=== PATIENT | female | born 1995 | race African-American/Black ===

== ENCOUNTER 2016-06-29 23:20 | Emergency (ER) | payer SELFPAY ==
--- NOTE | 2016-06-30 02:08 | ER Document Report ---
ED GI/ - General Chief Complaint: Vaginal Bleeding Stated Complaint: VAGINAL BLEEDING Time seen by provider: 02:00 Notes: Patient is a 21-year-old female that comes emergency department for chief complaint of 5 days of heavy vaginal bleeding, states that she was placed on control for this but has run out, states she was diagnosed with dysfunctional uterine bleeding, states she is not currently sexually active. She states that she will get a cramp, feel radiation to her flank, and then pass a blood clot. She states when she was on control (prescribed by [facility]) she had no symptoms, states she is struggling with the ID issues currently. TRAVEL OUTSIDE OF THE [place] IN LAST 30 DAYS: No Past Medical History - General Information source: Patient - Social History Smoking Status: Never Smoker Frequency of alcohol use: None Drug Abuse: None Lives with: Family Family History: Reviewed & Not Pertinent - Medical History Medical History: Negative Renal/ Medical History: Denies: Hx Peritoneal Dialysis Surgical Hx: Negative - Immunizations Immunizations up to date: Yes Hx Diphtheria, Pertussis, Tetanus Vaccination: Yes Review of Systems - Review of Systems Constitutional: No symptoms reported EENT: No symptoms reported Cardiovascular: No symptoms reported Respiratory: No symptoms reported Gastrointestinal: See HPI Genitourinary: No symptoms reported Female Genitourinary: See HPI Musculoskeletal: No symptoms reported Skin: No symptoms reported Hematologic/Lymphatic: No symptoms reported Neurological/Psychological: No symptoms reported Physical Exam - Vital signs Vitals: Temp Pulse Resp BP Pulse Ox 98.2 F 93 18 131/81 H 98 06/30/16 00:12 06/30/16 00:12 06/30/16 00:12 06/30/16 00:12 06/30/16 00:12 Interpretation: Normal - General General appearance: Appears well, Alert In distress: None - HEENT Head: Normocephalic, Atraumatic Eyes: Normal Pupils: PERRL - Respiratory Respiratory status: No respiratory distress Chest status: Nontender Breath sounds: Normal Chest palpation: Normal - Cardiovascular Rhythm: Regular Heart sounds: Normal auscultation Murmur: No - Abdominal Inspection: Normal Distension: No distension Bowel sounds: Normal Tenderness: Tender - Very mild generalized lower abdominal tenderness with no guarding or rebound. No: Guarding - Back Back: Normal, Nontender. No: Tender - Extremities General upper extremity: Normal inspection, Nontender, Normal color, Normal ROM , Normal temperature General lower extremity: Normal inspection, Nontender, Normal color, Normal ROM , Normal temperature, Normal weight bearing. No: Samantha's sign - Neurological Neuro grossly intact: Yes Cognition: Normal Orientation: AAOx4 [place] Coma Scale Eye Opening: Spontaneous [place] Coma Scale Verbal: Oriented [place] Coma Scale Motor: Obeys Commands [place] Coma Scale Total: 15 Speech: Normal Motor strength normal: LUE, RUE, LLE, RLE Sensory: Normal - Psychological Associated symptoms: Normal affect, Normal mood - Skin Skin Temperature: Warm Skin Moisture: Dry Skin Color: Normal Course - Re-evaluation Re-evalutation: Hemoglobin is low in the mid eights, microcytic anemia, likely blood loss related. Patient is not hypotensive, tachycardic, she denies any dizziness or lightheadedness, she is well-appearing. Very mild generalized tenderness on abdominal exam. No leukocytosis, no fever, urinalysis unremarkable, ultrasound is unremarkable. Patient will be started on Sprintec contraceptive, encouraged to restart her iron and follow-[place] closely [place] [employer] [place] Discussed return precautions. Patient states understanding and agreement. - Vital Signs Vital signs: Temp Pulse Resp BP Pulse Ox 98.2 F 84 16 132/79 H 100 06/30/16 00:12 06/30/16 05:15 06/30/16 05:15 06/30/16 05:15 06/30/16 05:15 - Laboratory Result Diagrams: 06/30/16 02:18 Laboratory results interpreted by me: 06/30/16 06/30/16 02:00 02:18 Hgb 8.6 L Hct 28.4 L MCV 71 L MCH 21.4 L MCHC 30.3 L RDW 15.9 H Plt Count 520 H Eosinophils % 10.1 H Absolute Eosinophils 0.7 H Urine Blood SMALL H Discharge - Discharge Clinical Impression: Dysfunctional uterine bleeding Iron deficiency anemia Qualifiers: Iron deficiency anemia type: chronic blood loss Qualified Code(s): D50.0 - Iron deficiency anemia secondary to blood loss (chronic) Condition: Stable Disposition: HOME, SELF-CARE Additional Instructions: Your ultrasound does not show any acute abnormality. You are becoming more anemic, please take your iron and take the prescribed contraceptive as directed. Please follow-up closely with [employer] for additional management. Return to emergency department for any concerning worsening symptoms including dizziness, passing out, severe bleeding, severe pain, etc. Prescriptions: Norgestimate-Ethinyl Estradiol [Sprintec 28 Day Tablet] 1 each PO ASDIR PRN #56 tablet PRN Reason: Forms: Return to Work
[2016-06-30 02:40] LABS: ABSOLUTE BASOPHILS # (AUTO) 0.1 10^3/uL (0.0-0.2); ABSOLUTE EOSINOPHILS # (AUTO) 0.7 10^3/uL (0.0-0.6); ABSOLUTE MONOCYTES (AUTO) 0.6 10^3/uL (0.1-1.4); HEMOGLOBIN 8.6 g/dL (12.0-15.5); MEAN CORPUSCULAR VOLUME 71 fl (80-97)
[2016-06-30 02:46] LABS: APPEARANCE,URINE CLEAR; BILIRUBIN,URINE NEGATIVE (NEGATIVE); GLUCOSE, URINE NEGATIVE (NEGATIVE); KETONES,URINE NEGATIVE (NEGATIVE); LEUKOCYTE ESTERASE,URINE NEGATIVE (NEGATIVE); NITRITE,URINE NEGATIVE (NEGATIVE); PROTEIN,URINE NEGATIVE (NEGATIVE); URINE SPECIFIC GRAVITY 1.014; UROBILINOGEN,URINE NEGATIVE mg/dL (<2.0)
[2016-06-30 02:53] LABS: ABSOLUTE LYMPHOCYTES (AUTO) 2.4 10^3/uL (0.5-4.7); ABSOLUTE NEUT (AUTO) 3.3 10^3/uL (1.7-8.2); BASOPHILS % (AUTO) 1.3 % (0-2); EOSINOPHILS % (AUTO) 10.1 % (0-6); HEMATOCRIT 28.4 % (36.0-47.0); HGB HCT DIFFERENCE -2.6; LYMPHOCYTES % (AUTO) 34.4 % (13-45); MEAN CORPUSCULAR HEMOGLOBIN 21.4 pg (27.0-33.4); MEAN CORPUSCULAR HGB CONC 30.3 g/dL (32.0-36.0); MONOCYTES % (AUTO) 8.3 % (3-13); RED BLOOD COUNT 4.01 10^6/uL (3.72-5.28); RED CELL DISTRIBUTION WIDTH 15.9 % (11.5-14.0); SEGMENTED NEUTROPHILS % (AUTO) 45.9 % (42-78); WHITE BLOOD COUNT 7.1 10^3/uL (4.0-10.5)
[2016-06-30 05:19] VITALS: BP 132/79
== END 2016-06-30 05:32 | disposition home or self-care (01) ==
LOC: ER 23:20
DX: N93.8 Other specified abnormal uterine and vaginal bleeding (principal); D50.0 Iron deficiency anemia secondary to blood loss (chronic)
CPT/HCPCS: 36415; 76830; 81001; 81025; 85025; 93976; 99284